=== PATIENT | male | born 1985 | race Caucasian/White ===

== ENCOUNTER 2021-01-09 13:53 | Emergency (ER) | payer OTHER ==
[~2021-01-09] VITALS: Ht 172.7 cm; Wt 72.6 kg
[2021-01-09] MEDS ORDERED: IBUPROFEN 800800 M1 PO ×2 (16:42→17:00)
[2021-01-09] MEDS ORDERED: FLEXERIL PO ×2 (16:42→17:00)
[2021-01-09 17:16] VITALS: BP 120/60
== END 2021-01-09 17:17 | disposition home or self-care (01) ==
LOC: M.ERS 13:53
DX: S16.1XXA Strain of muscle, fascia and tendon at neck level, initial encounter (principal); S00.01XA Abrasion of scalp, initial encounter; W22.8XXA Striking against or struck by other objects, initial encounter; Y93.89 Activity, other specified; Y92.89 Other specified places as the place of occurrence of the external cause; Y99.8 Other external cause status